=== PATIENT | female | born 1950 | race Caucasian/White ===

== ENCOUNTER 2016-11-30 14:28 | Emergency (ER) | payer OTHER ==
--- NOTE | 2016-12-06 11:01 | ER ---
ADMIT: 11/30/2016 RM/LOC: ER [facility] MR#: [id number] [id number] [place] [address] Emergency Room Report SEX: F AGE: 65 : 1950 DATE: 11/30/2016 ADDENDUM: A 65-year-old white female coming in with kind of dizziness, questionable near syncope. It has been going on today, maybe through the weekend. EKG showed atrial fib, but no rapid rate. The CBC, chemistry was normal with the exception of her potassium is 3.2. Troponin was negative. Chest x-ray, nothing acute as well. At this time, she is on hydrochlorothiazide. We are stopping that, and we are going to put her on potassium 20 mEq q.12 hours through the weekend until she sees Dr. Lawson at 11:40 a.m. on Friday. She is advised, understands any changes she should be back here. CONDITION ON DISCHARGE: Good. Andrea Azul MD/ glory JOB #: [id number] CC: Andrea Azul MD, Attending Physician Keerthi Lawson MD, Family Physician
== END 2016-11-30 17:45 | disposition home or self-care (01) ==
LOC: ER 14:28
DX: I48.0 Paroxysmal atrial fibrillation (principal); R42 Dizziness and giddiness; I10 Essential (primary) hypertension